=== PATIENT | male | born 1995 | race Caucasian/White ===

== ENCOUNTER 2017-07-29 19:38 | Emergency (ER) | payer OTHER ==
[2017-07-29] MEDS: PERCOCET 5MG/325MG TAB PO (21:13)
[2017-07-29] MEDS: OXYCODONE/APAP 5MG/325MG(BULK FOR ED) 1 TABLET PO (22:12)
== END 2017-07-29 22:36 | disposition home or self-care (01) ==
LOC: M ED 19:38
DX: S42.002A Fracture of unspecified part of left clavicle, initial encounter for closed fracture (principal); W19.XXXA Unspecified fall, initial encounter; Y92.410 Unspecified street and highway as the place of occurrence of the external cause; Y93.9 Activity, unspecified; F17.200 Nicotine dependence, unspecified, uncomplicated
CPT/HCPCS: 73030